=== PATIENT | male | born 1980 | race Two or more races ===

== ENCOUNTER 2019-09-17 17:21 | Emergency (ER) | payer OTHER ==
[2019-09-17 17:30] VITALS: TEMP 98.8; BMI 38.4
--- NOTE | 2019-09-17 18:46 | PDOC ---
History of Present Illness - General Chief Complaint: Pain Stated Complaint: RT SIDE PAIN Time Seen by Provider: 09/17/19 18:06 History Source: Patient Exam Limitations: No Limitations - History of Present Illness Initial Comments: 09/17/19 18:39 Patient is a 38-year-old male with no pmhx c/o right sided abdominal pain since 4 days. States the pain has been continuos 9/10, soreness, which radiates to the right flank. No testicular pain. Has no associated nausea, vomiting, fever , chills, dysuria, hematuria. No prior episode of this pain. No h/o kidney stone. PMD: Dr. Hylton PMHX: as above PSOCHX: neg etoh, drug, cig ALL: NKDA GENERAL/CONSTITUTIONAL: [No fever or chills. No weakness. No weight change.] HEAD, EYES, EARS, NOSE AND THROAT: [No change in vision. No ear pain or discharge. No sore throat.] CARDIOVASCULAR: [No chest pain or shortness of breath.] RESPIRATORY: [No cough, wheezing, or hemoptysis.] GASTROINTESTINAL: [No nausea, vomiting, diarrhea or constipation. No rectal bleeding.] GENITOURINARY: [No dysuria, frequency, or change in urination.] MUSCULOSKELETAL: [No joint or muscle swelling or pain. No neck or back pain.] SKIN AND BREASTS: [No rash or easy bruising.] NEUROLOGIC: [No headache, vertigo, loss of consciousness, or loss of sensation.] PSYCHIATRIC: [No depression or anxiety.] ENDOCRINE: [No increased thirst. No abnormal weight change.] HEMATOLOGIC/LYMPHATIC: [No anemia, easy bleeding, or history of blood clots.] ALLERGIC/IMMUNOLOGIC: [No hives or skin allergy. No latex allergy.] GENERAL: [The patient is awake, alert, and fully oriented, moderate painful distress.] HEAD: [Normal with no signs of trauma.] EYES: [Pupils equal, round and reactive to light, extraocular movements intact, sclera anicteric, conjunctiva clear.] ENT: [Ears normal, nares patent, oropharynx clear without exudates. Moist mucous membranes.] NECK: [Normal range of motion, supple without lymphadenopathy, JVD, or masses.] LUNGS: [Breath sounds equal, clear to auscultation bilaterally. No wheezes, and no crackles.] HEART: [Regular rate and rhythm, normal S1 and S2 without murmur, rub.] ABDOMEN: [Soft, (+) tender right lower quadrant, normoactive bowel sounds. (+) guarding, (+) rebound. No masses.] EXTREMITIES: [Normal range of motion, no edema. No clubbing or cyanosis. No cords, erythema, or tenderness.] NEUROLOGICAL: [Cranial nerves II through XII grossly intact. Normal speech, normal gait.] PSYCH: [Normal mood, normal affect.] SKIN: [Warm, Dry, normal turgor, no rashes or lesions noted.] Past History - Past Medical History Allergies/Adverse Reactions: Allergies Allergy/AdvReac Type Severity Reaction Status Date / Time No Known Allergies Allergy Verified 09/17/19 17:30 COPD: No - Psycho Social/Smoking Cessation Hx Smoking History: Never smoked *Physical Exam - Vital Signs Last Vital Signs Temp Pulse Resp BP Pulse Ox 98.8 F 67 18 137/80 98 09/17/19 17:28 09/17/19 17:28 09/17/19 17:28 09/17/19 17:28 09/17/19 17:28 ED Treatment Course - LABORATORY CBC & Chemistry Diagram: 09/17/19 20:31 09/17/19 20:31 Medical Decision Making - Medical Decision Making 09/17/19 18:39 Patient is a 38-year-old male with no pmhx c/o right sided abdominal pain since 4 days. States the pain has been continuos 9/10, soreness, which radiates to the right flank. No testicular pain. Has no associated nausea, vomiting, fever , chills, dysuria, hematuria. No prior episode of this pain. No h/o kidney stone. DDX: Appendicitis, colitis, diverticulitis Labs Pain meds CT abdomen pelvis with IV contrast. Reassess. Patient states has improved pain symptoms with pain meds. 09/18/19 00:48 Patient Full Name: ISABEL MESA Patient Accession No: [id number] Patient : 1980 Reason for Exam: RLQ Referring Physician: Patient Name: MOSHE HALL THIS IS A PRELIMINARY REPORT FROM [facility] DATE OF SERVICE: 2019-09-17 23:03:25 IMAGES: [id number] EXAM: CT ABDOMEN WITH CONTRAST AND CT PELVIS WITH CONTRAST HISTORY: 38-Year-Old Male Right Lower Quadrant Abdominal Pain. COMPARISON: None. CONTRAST: 100 mL of Omnipaque Intravenous Contrast Administered FINDINGS: Mild basilar atelectasis. Small pericardial effusion. Mild hepatomegaly and steatosis. Mild nonspecific splenomegaly. Gallbladder pancreas adrenal glands and kidneys appear unremarkable. Lack of oral contrast limits this exam. Nonoral contrast evaluation of the stomach small bowel and appendix appear unremarkable. No appendicitis. Mild nonspecific wall thickening of the anterior wall of the ascending colon most likely due to mild infectious or inflammatory colitis. Abnormal heterogeneous enhancement in the fat in the right abdomen surrounding the 6.5 x 5.4 x 2 cm epiploic fat extending off the anterior wall of the ascending colon on axial image 73 coronal image 63 and sagittal image 19 most likely due to acute epiploic appendagitis. Diverticulosis of the colon without diverticulitis. Calcified granulomas in the prostate. The bladder appears unremarkable. No free air. No free fluid. No abscess. Mild to moderate degenerative disc disease. Small umbilical hernia of omental fat without incarceration. Small bilateral inguinal hernias of omental fat without incarceration. Significant subcutaneous adipose tissues incompletely included within the [id number]. IMPRESSION: Acute epiploic appendagitis of the ascending colon. Mild nonspecific wall thickening of the anterior wall of the ascending colon most likely due to mild infectious or inflammatory colitis. Mild hepatomegaly and steatosis. Mild nonspecific splenomegaly. Diverticulosis of the colon without diverticulitis. Calcified granulomas in the prostate. Mild to moderate degenerative disc disease. Small umbilical hernia of omental fat without incarceration and small bilateral inguinal hernias of omental fat without incarceration. This CT exam was performed using one or more of the following dose reduction techniques: automated exposure control, adjustment of the mA and/or kV according to patient size, use of iterative reconstruction technique. One or more of the following dose reduction techniques were used: automated exposure control, adjustment of the mA and/or kV according to patient size, use of iterative reconstructive technique. THIS DOCUMENT HAS BEEN ELECTRONICALLY SIGNED Jonathan Chaudhari MD 09/18/2019 00:43 ARVI Barrera Please call Imaging Cager Operator [phone] ([phone]) with questions. INTERPRETING RADIOLOGIST: Jonathan Chaudhari MD Electronically Signed: Sep 18, 2019 12:44AM EST 09/18/19 00:49 Patient is afebrile abdomen soft nontender consider sending patient home with anti-inflammatories I discussed the physical exam findings, ancillary test results and final diagnoses with the patient. I answered all of the patient's questions. The patient was satisfied with the care received and felt comfortable with the discharge plan and treatment plan. The Patient agrees to follow up with the primary care physician within 24-72 hours. Results of the CT scan given to the patient so there could be a follow-up to urology and primary care doctor. Discharge - Discharge Information Problems reviewed: Yes Clinical Impression/Diagnosis: Colitis, Epiploic appendagitis Abdominal pain Qualifiers: Abdominal location: right lower quadrant Qualified Code(s): R10.31 - Right lower quadrant pain Condition: Stable Disposition: HOME - Follow up/Referral Referrals: Duane Hylton [Primary Care Provider] - Brian Long MD [Staff Physician] - - Patient Discharge Instructions Patient Printed Discharge Instructions: DI for Abdominal Pain-Adult, DI for Colitis Additional Instructions: Your Discharge Instructions: You must call primary care physician within 24 hours to arrange follow-up. Return to the Emergency Department with any new, persistent or worsening symptoms, for fever, chills, SOB, dizziness or any other concerning changes that may occur. Follow-up with GI and your primary care doctor for further evaluation and treatment. We have provided you with a copy of the CAT scan for their review. Continue Motrin every 6 hours for your pain. - Post Discharge Activity
[2019-09-17] MEDS ORDERED: KETOROLAC TROMETHAMINE 30 MG/1 ML VIAL IVPUSH ONE (19:07)
[2019-09-17] MEDS ORDERED: SODIUM CHLORIDE 0.9% 500 ML INFUS.BAG IV ONE (19:07)
[2019-09-17] MEDS ORDERED: KETOROLAC TROMETHAMINE 30 MG/1 ML VIAL ONE (20:38)
[2019-09-17 20:54] LABS: BASO % 0.5 % (0-2.0); EOS % 1.9 % (0-4.5); HEMOGLOBIN 15.8 GM/dL (11.7-16.9); LYMPH % 21.9 % (8-40); MCH 29.4 pg (25.7-33.7); MCHC 34.4 g/dl (32.0-35.9); MEAN CELL VOLUME 85.5 fl (80-96); MEAN PLT VOLUME 8.2 fl (7.5-11.1); MONO % 6.3 % (3.8-10.2); NEUT % 69.4 % (42.8-82.8); PLATELET COUNT 284 K/MM3 (134-434); RBC 5.38 M/mm3 (4.00-5.60); RDW 14.4 % (11.9-15.9); WHITE BLOOD COUNT 10.3 K/mm3 (4.0-10.0)
[2019-09-17 21:11] LABS: ALBUMIN 3.9 g/dl (3.4-5.0); BILIRUBIN,TOTAL 0.4 mg/dL (0.2-1); BLOOD UREA NITROGEN 14.9 mg/dL (7-18); CALCIUM 8.6 mg/dL (8.5-10.1); CREATININE 0.9 mg/dL (0.55-1.3); TOT PROT 7.6 g/dl (6.4-8.2)
[2019-09-17 21:56] LABS: URINE APPEARANCE CLEAR; URINE BILIRUBIN NEGATIVE (NEGATIVE); URINE COLOR YELLOW; URINE GLUCOSE (UA) NEGATIVE (NEGATIVE); URINE KETONE NEGATIVE (NEGATIVE); URINE LEUK ESTERASE NEGATIVE (NEGATIVE); URINE NITRITE NEGATIVE (NEGATIVE); URINE PROTEIN NEGATIVE (NEGATIVE)
[2019-09-18 01:20] VITALS: BP 132/82; PULSE 70
== END 2019-09-18 01:23 | disposition home or self-care (01) ==
LOC: JER 17:21
PROC: 3E0333Z Introduction of Anti-inflammatory into Peripheral Vein, Percutaneous Approach (ICD-10-PCS; principal; 2019-09-17)
DX: R10.31 Right lower quadrant pain (principal)
CPT/HCPCS: 36415; 74177-TC; 80053; 81003; 83690; 85025; 99283-25